=== PATIENT | male | born 1985 | race African-American/Black ===

== ENCOUNTER → 2020-08-17 | Emergency (ER) | payer SELFPAY ==
[~2020-08-17] VITALS: Ht 188 cm; Wt 95.3 kg
[~2020-08-17] MED LIST: ACETAMINOPHEN 325MG TABLET PO ONE; NALO4SPR BOTHNSTRLS; NALOXONE HCL 1 MG/ML 2ML VIAL IM SCH
[2020-08-17 05:06] LABS: CHLORIDE 102 mEq/L (98-107); ETHANOL BLOOD 88 mg/dL
[2020-08-17 05:13] LABS: HEMOGLOBIN. 16.9 g/dL (14.0-18.0); MEAN CORPUSCULAR HEMOGLOBIN 31.5 pg (28.0-32.0); MEAN CORPUSCULAR VOLUME 94.9 fL (80.0-94.0); RED BLOOD CELL COUNT 5.37 mill/uL (4.7-6.1)
[2020-08-17 05:14] LABS: BASOPHILS % 0.6 % (0.0-2.0); LYMPHOCYTES % 22.1 % (20.0-50.0); MEAN PLATELET VOLUME 9.1 fl (7.4-10.4); MONOCYTES % 7.1 % (2.0-8.0); NEUTROPHILS % 68.2 % (40.0-76.0); PLATELET 278 x1000/uL (130-400)
[2020-08-17 06:34] VITALS: BP 136/88
== END ==
LOC: ER 02:29
DX: T40.2X1A Poisoning by other opioids, accidental (unintentional), initial encounter (principal); X58.XXXA Exposure to other specified factors, initial encounter
CPT/HCPCS: 36415; 80048; 80307; 80320; 80329; 82962; 85025; 93005; 99284; Z7610; G0480

== ENCOUNTER 2021-10-10 21:40 | Emergency (ER) | payer MEDICAID ==
[~2021-10-10] VITALS: Ht 180.3 cm; Wt 108.2 kg
[~2021-10-10 21:40] MED LIST changes: -ACETAMINOPHEN 325MG TABLET PO ONE; -NALOXONE HCL 1 MG/ML 2ML VIAL IM SCH
[2021-10-11] MEDS ORDERED: IBUPROFEN 600MG TABLET PO STA (00:07)
[2021-10-11] MEDS ORDERED: CYCL5TAB PO (01:53)
[2021-10-11] MEDS ORDERED: IBUP-2029 PO (01:53)
[2021-10-11 02:00] VITALS: BP 146/99
== END 2021-10-11 02:04 | disposition home or self-care (01) ==
LOC: ER 21:40
DX: S00.83XA Contusion of other part of head, initial encounter (principal); M25.552 Pain in left hip; M25.562 Pain in left knee; M25.561 Pain in right knee; M54.2 Cervicalgia; M54.89 Other dorsalgia; R07.89 Other chest pain; F11.10 Opioid abuse, uncomplicated; V43.62XA Car passenger injured in collision with other type car in traffic accident, initial encounter; Y93.89 Activity, other specified; Y92.488 Other paved roadways as the place of occurrence of the external cause
CPT/HCPCS: 71045; 72100; 73502; 73562; 93005; 99284

== ENCOUNTER 2021-10-16 13:55 | Emergency (ER) | payer MEDICAID ==
[~2021-10-16] VITALS: Ht 180.3 cm; Wt 100.0 kg
[~2021-10-16 13:55] MED LIST changes: +CYCL5TAB PO; +IBUP-2029 PO
[2021-10-16 14:02] VITALS: BP 132/89
[2021-10-16] MEDS ORDERED: ACETAMINOPHEN 500MG TABLET PO ONE (18:15)
== END 2021-10-16 18:35 | disposition home or self-care (01) ==
LOC: ER 13:55
DX: S39.012A Strain of muscle, fascia and tendon of lower back, initial encounter (principal); H10.219 Acute toxic conjunctivitis, unspecified eye; F11.10 Opioid abuse, uncomplicated; W01.0XXA Fall on same level from slipping, tripping and stumbling without subsequent striking against object, initial encounter; Y93.89 Activity, other specified; Y92.89 Other specified places as the place of occurrence of the external cause; Y99.8 Other external cause status
CPT/HCPCS: 99282

== ENCOUNTER 2021-11-24 17:24 | Emergency (ER) | payer MEDICAID ==
[~2021-11-24] VITALS: Ht 180.3 cm; Wt 94.0 kg
[2021-11-24 18:14] VITALS: BP 168/98
[2021-11-24] MEDS ORDERED: IBUPROFEN 800MG TABLET PO ONE (22:30)
[2021-11-24] MEDS ORDERED: NAP5EC MT (23:29)
== END 2021-11-25 00:20 | disposition home or self-care (01) ==
LOC: ER 17:24
DX: R22.32 Localized swelling, mass and lump, left upper limb (principal); M79.671 Pain in right foot; M79.672 Pain in left foot; F10.10 Alcohol abuse, uncomplicated; Y90.9 Presence of alcohol in blood, level not specified
CPT/HCPCS: 73130; 99283

== ENCOUNTER 2025-02-06 21:37 | Emergency (ER) | payer MEDICAID ==
[~2025-02-06] VITALS: Ht 177.8 cm; Wt 100.0 kg
[~2025-02-06 21:37] MED LIST changes: -CYCL5TAB PO; +CYCL5TAB3 PO; +NAPR-1495 MT
[2025-02-06 21:50] VITALS: O2SAT 98
[2025-02-06] MEDS: HYDROCODONE/ACETAMINOPHEN 5/325MG TABLET PO ONE (22:54)
[2025-02-06 23:06] LABS: BASOPHILS % 0.6 % (0.0-2.0); EOSINOPHILS % 3.1 % (0.0-5.0); HEMATOCRIT. 41.3 % (42.0-52.0); HEMOGLOBIN. 13.9 g/dL (14.0-18.0); LYMPHOCYTES % 28.5 % (20.0-50.0); MEAN PLATELET VOLUME 7.8 fl (7.4-10.4); MONOCYTES % 7.4 % (2.0-8.0); NEUTROPHILS % 60.4 % (40.0-76.0); PLATELET 275 x1000/uL (130-400); RED BLOOD CELL COUNT 4.42 mill/uL (4.7-6.1); RED CELL DISTRIBUTION WIDTH 12.9 % (11.6-14.6)
[2025-02-06 23:20] LABS: CREATININE 1.1 mg/dL (0.6-1.3); UREA NITROGEN BLOOD 14 mg/dL (9-23)
[2025-02-06 23:21] LABS: TROPONIN I HIGH SENSITIVITY < 4 ng/L (3.0-53)
[2025-02-06 23:22] LABS: ASPARTATE AMINOTRANSFERASE 17 IU/L (<34); BILIRUBIN TOTAL 0.4 mg/dL (0.1-1.0)
[2025-02-06 23:23] LABS: PROTEIN TOTAL 6.3 g/dL (6.0-8.3)
[2025-02-07] MEDS ORDERED: CYCL5TAB3 PO (00:29)
[2025-02-07] MEDS ORDERED: IBUP-2029 MT (00:29)
[2025-02-07] MEDS: KETOROLAC 15MG/ML VIAL IV ONE (00:36)
[2025-02-07 00:53] VITALS: BP 115/61; PULSE 84; RESP 16; TEMP 36.6; O2SAT 95
== END 2025-02-07 00:53 | disposition home or self-care (01) ==
LOC: ER 21:37
DX: R07.9 Chest pain, unspecified (principal); R10.9 Unspecified abdominal pain; F17.210 Nicotine dependence, cigarettes, uncomplicated
CPT/HCPCS: 99285; 71250; 71045; 80053; 85025; 85379; 84484; 36415; 74176; 93005; 96374; J1885